=== PATIENT | male | born 1960 | race Caucasian/White ===

== ENCOUNTER 2018-12-24 12:42 | Inpatient (IN) | payer OTHER ==
[~2018-12-24] VITALS: Ht 177.8 cm; Wt 88.2 kg
[~2018-12-24 12:42] MED LIST: ASPI81TA52 PO; LISI-600 PO; PRAV40TA3 PO; RANO500T3 PO
[2018-12-24] MEDS ORDERED: aspirin 325mg tablet PO ONE (13:00)
[2018-12-24 13:11] LABS: BASOPHILS % (AUTO) 0.5 % (0-1); EOSINOPHILS # (AUTO) 0.1 X10'3 (0-0.9); EOSINOPHILS % (AUTO) 1.6 % (0-6); HEMATOCRIT 41.9 % (42.0-52.0); HEMOGLOBIN 14.5 g/dl (14.0-17.9); LYMPHOCYTES # (AUTO) 1.7 X10'3 (1.1-4.8); LYMPHOCYTES % (AUTO) 31.8 % (21-51); MEAN CORPUSCULAR HEMOGLOBIN 32.5 PG (27.0-31.0); MEAN CORPUSCULAR HGB CONC 34.5 g/dL (33.0-36.5); MEAN PLATELET VOLUME 7.8 FL (7.4-10.4); MONOCYTES # (AUTO) 0.6 X10'3 (0-0.9); MONOCYTES % (AUTO) 11.4 % (2-12); NEUTROPHILS # (AUTO) 2.9 X10'3 (1.8-7.7); NEUTROPHILS % (AUTO) 54.7 % (42-75); PLATELET COUNT 318 X10'3 (140-440); RED BLOOD COUNT 4.45 X10'6 (4.70-6.10); RED CELL DISTRIBUTION WIDTH 13.7 % (11.5-14.5); WHITE BLOOD COUNT 5.3 X10'3 (4.5-11.0)
[2018-12-24 13:23] LABS: PARTIAL THROMBOPLASTIN TIME 25 SECONDS (22-32)
[2018-12-24 13:24] LABS: ALANINE AMINOTRANSFERASE 36 U/L (12-78); ALBUMIN 3.6 G/DL (3.4-5.0); ALBUMIN/GLOBULIN RATIO 1.2 (1.1-1.5); ALKALINE PHOSPHATASE 92 IU/L (46-116); ANION GAP 8 (8-16); ASPARTATE AMINO TRANSFERASE 20 U/L (10-37); BILIRUBIN,TOTAL 0.5 MG/DL (0.1-1.0); BLOOD UREA NITROGEN 14 MG/DL (7-18); BUN/CREATININE RATIO 18.9 (5.4-32.0); CALCIUM 8.4 MG/DL (8.5-10.1); CHLORIDE 107 MMOL/L (99-107); CREATININE 0.74 MG/DL (0.60-1.10); GLUCOSE 98 MG/DL (70-104); POTASSIUM 3.8 MMOL/L (3.5-5.1); SODIUM 142 MMOL/L (135-145); TOTAL CARBON DIOXIDE 27.5 MMOL/L (24-32); TOTAL PROTEIN 6.5 G/DL (6.4-8.2); eGFR > 90 ML/MIN
[2018-12-24] MEDS ORDERED: magnesium hydroxide 30ml (MOM) UD suspension PO PRN (13:55)
[2018-12-24] MEDS ORDERED: mag hydrox/Alum hydrox/simeth 30ml oral suspension PO PRN (13:55)
[2018-12-24] MEDS ORDERED: potassium Cl 20 mEq SR tablet PO PRN (13:55)
[2018-12-24] MEDS ORDERED: bisacodyl 10mg suppository rectal RC PRN (13:55)
[2018-12-24] MEDS ORDERED: potassium Cl 40MEQ/NS 500ml 500 ML IV PRN (13:55)
[2018-12-24] MEDS ORDERED: potassium CL 10mEq/100ml bag 100 ML IV PRN (13:55)
[2018-12-24] MEDS ORDERED: magnesium 4gm in 100ml NS 100 ML IV PRN (13:55)
[2018-12-24] MEDS ORDERED: magnesium Cl slow-release 64mg tablet PO PRN (13:55)
[2018-12-24] MEDS ORDERED: morphine 2 MG/ML inj. syringe IV PRN ×2 (13:55)
[2018-12-24] MEDS ORDERED: acetaminophen 325mg tablet PO PRN (13:55)
[2018-12-24] MEDS ORDERED: magnesium 2GM in 50ml NS 50 ML IV PRN (13:55)
[2018-12-24] MEDS ORDERED: NIT5P TD (13:56)
[2018-12-24] MEDS ORDERED: ATOR80TA PO (13:56)
[2018-12-24] MEDS ORDERED: NITR0.4T51 SL (13:56)
[2018-12-24] MEDS ORDERED: heparin 25,000 UNIT/250ml bag 250 ML IV SCH ×2 (14:09→14:17)
[2018-12-24] MEDS ORDERED: heparin 10,000 units/1 ML INJ IV ONE (14:10)
[2018-12-24] MEDS ORDERED: heparin 10,000 units/1 ML INJ IV PRN (14:10)
[2018-12-24] MEDS ORDERED: carVEDilol 3.125mg tablet PO SCH (14:10)
[2018-12-24] MEDS ORDERED: nitroGLYCERIN 0.4mg SUBLingual tab SL PRN (14:10)
--- NOTE | 2018-12-24 14:42 | NUR ---
PATIENT ARRIVED TO ROOM 3012 B AT THIS TIME, SON AT BEDSIDE.
[2018-12-24 14:54] VITALS: BP 146/78
[2018-12-24] MEDS: nitroGLYCERIN 0.4mg/hour patch TD SCH (15:34)
--- NOTE | 2018-12-24 16:45 | NUR ---
PATIENT DARTED. MED REQ COMPLETED PER HOSPITALIST.
[2018-12-24 18:00] VITALS: BP 120/72
--- NOTE | 2018-12-24 18:05 | NUR ---
Problems reprioritized. Patient report given, questions answered & plan of care reviewed with DAVEY CHAO/KENNEY CHAO.
[2018-12-24] MEDS: docusate sod 100mg capsule PO SCH (20:21)
[2018-12-24] MEDS ORDERED: atorvastatin 20mg tablet PO SCH (21:00)
[2018-12-24] MEDS ORDERED: pravastatin 40mg tablet PO SCH (21:00)
[2018-12-24] MEDS ORDERED: non-formulary drug (Atorvastatin Calcium* (Lipitor*) 1 TABLET) PO SCH (21:00)
[2018-12-24 22:00] VITALS: BP 106/57
[2018-12-25 01:26] LABS: ALANINE AMINOTRANSFERASE 30 U/L (12-78); ALBUMIN/GLOBULIN RATIO 1.2 (1.1-1.5); ALKALINE PHOSPHATASE 75 IU/L (46-116); ANION GAP 2 (8-16); ASPARTATE AMINO TRANSFERASE 18 U/L (10-37); BILIRUBIN,TOTAL 0.5 MG/DL (0.1-1.0); BLOOD UREA NITROGEN 12 MG/DL (7-18); BUN/CREATININE RATIO 17.4 (5.4-32.0); CALCIUM 8.2 MG/DL (8.5-10.1); CHLORIDE 109 MMOL/L (99-107); CREATININE 0.69 MG/DL (0.60-1.10); GLUCOSE 94 MG/DL (70-104); POTASSIUM 3.4 MMOL/L (3.5-5.1); SODIUM 141 MMOL/L (135-145); TOTAL CARBON DIOXIDE 29.9 MMOL/L (24-32); TOTAL PROTEIN 5.5 G/DL (6.4-8.2); eGFR > 90 ML/MIN
[2018-12-25 01:29] LABS: CHOL/HDL RATIO 2.6 (0.00-4.99); CHOLESTEROL 106 MG/DL (0-200); HDL CHOLESTEROL 41 MG/DL (35-60); LDL CHOLESTEROL 58 MG/DL (50-100); MAGNESIUM 1.8 MG/DL (1.5-2.4); TRIGLYCERIDES 39 MG/DL (20-135)
[2018-12-25] MEDS: potassium Cl 20 mEq SR tablet PO PRN ×3 (01:43→09:53)
[2018-12-25 02:00] VITALS: BP 103/60
[2018-12-25 04:16] LABS: BASOPHILS % (AUTO) 0.6 % (0-1); EOSINOPHILS # (AUTO) 0.1 X10'3 (0-0.9); EOSINOPHILS % (AUTO) 0.9 % (0-6); HEMATOCRIT 38.6 % (42.0-52.0); HEMOGLOBIN 13.3 g/dl (14.0-17.9); LYMPHOCYTES # (AUTO) 2.2 X10'3 (1.1-4.8); LYMPHOCYTES % (AUTO) 32.2 % (21-51); MEAN CORPUSCULAR HGB CONC 34.4 g/dL (33.0-36.5); MEAN PLATELET VOLUME 8.2 FL (7.4-10.4); MONOCYTES # (AUTO) 0.6 X10'3 (0-0.9); MONOCYTES % (AUTO) 8.7 % (2-12); NEUTROPHILS % (AUTO) 57.6 % (42-75); PLATELET COUNT 274 X10'3 (140-440); RED BLOOD COUNT 4.16 X10'6 (4.70-6.10); RED CELL DISTRIBUTION WIDTH 13.9 % (11.5-14.5); WHITE BLOOD COUNT 6.9 X10'3 (4.5-11.0)
--- NOTE | 2018-12-25 06:06 | NUR ---
Patient in room PCU 3012. I have received report from JEREMIE Alcantar and had the opportunity to ask questions and assume patient care.
--- NOTE | 2018-12-25 06:06 | NUR ---
[place]rientee documentation: I have reviewed and agree with all interventions, assessments performed and documented by Irena CHAO. [place] Medication Administration: For this medication-pass time frame, all medication were reviewed, dispensed, administered and documented per hospital policy by Irena CHAO.
--- NOTE | 2018-12-25 06:11 | NUR ---
Problems reprioritized. Patient report given, questions answered & plan of care reviewed with Estefani Rodriguez.
--- NOTE | 2018-12-25 06:21 | NUR ---
Patient in room PCU 3012. I have received report from Irena and had the opportunity to ask questions and assume patient care.
[2018-12-25 06:30] VITALS: BP 130/74
[2018-12-25] MEDS: docusate sod 100mg capsule PO SCH (07:15)
[2018-12-25 07:16] VITALS: BP_SYST 130
[2018-12-25] MEDS: nitroGLYCERIN 0.4mg/hour patch TD SCH (07:16)
[2018-12-25] MEDS ORDERED: K and/or MAG REPLACEMENT MC SCH (08:00)
[2018-12-25] MEDS ORDERED: aspirin 81mg tablet.DR PO SCH ×2 (08:00)
[2018-12-25] MEDS ORDERED: lisinopril 20mg tablet PO SCH (08:00)
[2018-12-25] MEDS ORDERED: NIT10P TD (09:27)
[2018-12-25] MEDS ORDERED: RANO500T3 PO (09:27)
[2018-12-25] MEDS ORDERED: POTA20TA19 PO (09:34)
--- NOTE | 2018-12-25 10:14 | NUR ---
Rx's called to [facility] on [address] Left message and informed them this was for workers comp as requested by pt. All follow up appointments and dc instructions gone over with pt and . They both verbalize understanding. IV dc'd. Discharged home via wc.
== END 2018-12-25 10:05 | disposition home or self-care (01) | DRG 303 ==
LOC: ER 12:43 → PCU 3S 14:39
PROVIDERS: ADMIT Internal Medicine; ATTEND Internal Medicine
DX: I25.118 Atherosclerotic heart disease of native coronary artery with other forms of angina pectoris (principal); I10 Essential (primary) hypertension; E87.6 Hypokalemia; E78.5 Hyperlipidemia, unspecified; Z95.1 Presence of aortocoronary bypass graft; Z95.5 Presence of coronary angioplasty implant and graft; Z91.013 Allergy to seafood; Z91.048 Other nonmedicinal substance allergy status
CPT/HCPCS: 36415; 71045; 80053; 80061; 83735; 84484; 85025; 85610; 85730; 87070; 93005; 93306; 99285; G0378; J1644

== ENCOUNTER 2021-06-07 10:41 | Inpatient (IN) | payer OTHER ==
[~2021-06-07] VITALS: Ht 177.8 cm; Wt 87.7 kg
[~2021-06-07 10:41] MED LIST changes: +ATOR80TA PO; -LISI-600 PO; +LISI20TA28 PO; +NITR0.4T51 SL; +NITR1PAT68 TD; -PRAV40TA3 PO
[2021-06-07 12:07] LABS: BASOPHILS % (AUTO) 0.4 % (0-1); EOSINOPHILS # (AUTO) 0.1 X10'3 (0-0.9); EOSINOPHILS % (AUTO) 0.8 % (0-6); HEMATOCRIT 44.3 % (42.0-52.0); HEMOGLOBIN 14.9 g/dl (14.0-17.9); LYMPHOCYTES # (AUTO) 1.2 X10'3 (1.1-4.8); LYMPHOCYTES % (AUTO) 15.6 % (21-51); MEAN CORPUSCULAR HEMOGLOBIN 30.5 PG (27.0-31.0); MEAN CORPUSCULAR HGB CONC 33.6 g/dL (33.0-36.5); MEAN CORPUSCULAR VOLUME 90.7 FL (78-98); MEAN PLATELET VOLUME 8.3 FL (7.4-10.4); MONOCYTES # (AUTO) 0.5 X10'3 (0-0.9); MONOCYTES % (AUTO) 6.9 % (2-12); NEUTROPHILS # (AUTO) 5.8 X10'3 (1.8-7.7); NEUTROPHILS % (AUTO) 76.3 % (42-75); PLATELET COUNT 371 X10'3 (140-440); RED BLOOD COUNT 4.89 X10'6 (4.70-6.10); RED CELL DISTRIBUTION WIDTH 14.1 % (11.5-14.5); WHITE BLOOD COUNT 7.6 X10'3 (4.5-11.0)
[2021-06-07 12:26] LABS: ALANINE AMINOTRANSFERASE 34 U/L (12-78); ALBUMIN 3.5 G/DL (3.4-5.0); ALBUMIN/GLOBULIN RATIO 1.1 (1.1-1.5); ALKALINE PHOSPHATASE 108 IU/L (46-116); ANION GAP 9 (8-16); ASPARTATE AMINO TRANSFERASE 24 U/L (10-37); BILIRUBIN,TOTAL 0.6 MG/DL (0.1-1.0); BLOOD UREA NITROGEN 11 MG/DL (7-18); BUN/CREATININE RATIO 13.9 (5.4-32.0); CALCIUM 8.6 MG/DL (8.5-10.1); CHLORIDE 107 MMOL/L (99-107); CREATININE 0.79 MG/DL (0.60-1.10); GLUCOSE 100 MG/DL (70-104); SODIUM 144 MMOL/L (135-145); TOTAL CARBON DIOXIDE 28.5 MMOL/L (24-32); TOTAL PROTEIN 6.6 G/DL (6.4-8.2); eGFR > 90 ML/MIN
[2021-06-07] MEDS ORDERED: aspirin 325mg tablet PO ONE (13:00)
[2021-06-07] MEDS ORDERED: nitroGLYCERIN 0.4mg/hour patch TD ONE (13:55)
[2021-06-07] MEDS ORDERED: heparin 10,000 units/1 ML INJ IV ONE (13:55)
[2021-06-07] MEDS: heparin 25,000 UNIT/250ml bag 250 ML IV SCH (14:21)
[2021-06-07] MEDS ORDERED: magnesium hydroxide 30ml (MOM) UD suspension PO PRN (14:25)
[2021-06-07] MEDS ORDERED: mag hydrox/Alum hydrox/simeth 30ml oral suspension PO PRN (14:25)
[2021-06-07] MEDS ORDERED: ondansetron/PF 4mg/2ml inj IV PRN (14:25)
[2021-06-07] MEDS ORDERED: morphine 2 MG/ML inj. syringe IV PRN ×2 (14:25)
[2021-06-07] MEDS ORDERED: acetaminophen 325mg tablet PO PRN (14:25)
[2021-06-07] MEDS ORDERED: NITR1PAT63 TOP (14:37)
[2021-06-07] MEDS: normal saline 1000ml 1,000 ML IV SCH ×2 (14:40→20:35)
[2021-06-07 14:52] LABS: PARTIAL THROMBOPLASTIN TIME 23 SECONDS (22-32)
[2021-06-07] MEDS ORDERED: nitroGLYCERIN 0.4mg SUBLingual tab SL PRN (15:45)
--- NOTE | 2021-06-07 18:44 | NUR ---
Patient in room ED 8. I have received report from JEREMIE Shipley in the ER and had the opportunity to ask questions and assume patient care.
--- NOTE | 2021-06-07 19:05 | NUR ---
Patient resting comfortably on bed, watching TV. Has no complaints at this time, we helped him boost up in bed. Addendum: 06/07/21 at 1906 by Margie Valencia RN wrong patient
[2021-06-07 19:38] VITALS: BP 137/73
[2021-06-07] MEDS ORDERED: pneumococcal 23-VAL P-sac vacc 25 mcg/0.5ml vial IMVAC ONE (19:50)
[2021-06-07 20:16] LABS: PARTIAL THROMBOPLASTIN TIME 47 SECONDS (22-32)
[2021-06-07] MEDS: docusate sod 100mg capsule PO SCH (20:31)
[2021-06-07] MEDS: atorvastatin 20mg tablet PO SCH (20:33)
[2021-06-08 02:37] LABS: ALBUMIN 2.9 G/DL (3.4-5.0); ANION GAP 8 (8-16); BLOOD UREA NITROGEN 12 MG/DL (7-18); BUN/CREATININE RATIO 16.2 (5.4-32.0); CHLORIDE 109 MMOL/L (99-107); CREATININE 0.74 MG/DL (0.60-1.10); GLUCOSE 81 MG/DL (70-104); POTASSIUM 3.4 MMOL/L (3.5-5.1); SODIUM 145 MMOL/L (135-145); TOTAL CARBON DIOXIDE 28.1 MMOL/L (24-32); eGFR > 90 ML/MIN
[2021-06-08] MEDS: heparin 10,000 units/1 ML INJ IV PRN ×2 (02:56→17:54)
[2021-06-08] MEDS: heparin 25,000 UNIT/250ml bag 250 ML IV SCH ×2 (02:57→16:36)
[2021-06-08 03:08] LABS: BASOPHILS # (AUTO) 0.1 X10'3 (0-0.2); BASOPHILS % (AUTO) 0.8 % (0-1); EOSINOPHILS # (AUTO) 0.1 X10'3 (0-0.9); EOSINOPHILS % (AUTO) 1.5 % (0-6); HEMATOCRIT 37.7 % (42.0-52.0); LYMPHOCYTES # (AUTO) 2.3 X10'3 (1.1-4.8); LYMPHOCYTES % (AUTO) 33.8 % (21-51); MEAN CORPUSCULAR HEMOGLOBIN 30.9 PG (27.0-31.0); MEAN CORPUSCULAR HGB CONC 34.3 g/dL (33.0-36.5); MEAN PLATELET VOLUME 8.7 FL (7.4-10.4); MONOCYTES # (AUTO) 0.6 X10'3 (0-0.9); MONOCYTES % (AUTO) 8.7 % (2-12); NEUTROPHILS # (AUTO) 3.7 X10'3 (1.8-7.7); NEUTROPHILS % (AUTO) 55.2 % (42-75); PLATELET COUNT 300 X10'3 (140-440); RED BLOOD COUNT 4.19 X10'6 (4.70-6.10); RED CELL DISTRIBUTION WIDTH 14.3 % (11.5-14.5); WHITE BLOOD COUNT 6.7 X10'3 (4.5-11.0)
--- NOTE | 2021-06-08 06:14 | NUR ---
Problems reprioritized. Patient report given, questions answered & plan of care reviewed with JEREMIE Moreland.
[2021-06-08 07:50] VITALS: BP 117/61
[2021-06-08] MEDS: lisinopril 20mg tablet PO SCH (08:00)
[2021-06-08] MEDS ORDERED: potassium Cl 20 mEq SR tablet PO PRN (08:15)
[2021-06-08] MEDS ORDERED: magnesium 4gm in 100ml NS 100 ML IV PRN (08:15)
[2021-06-08] MEDS ORDERED: potassium Cl 40MEQ/1/2NS 520ml 520 ML IV PRN (08:15)
[2021-06-08] MEDS ORDERED: magnesium Cl slow-release 64mg tablet PO PRN (08:15)
[2021-06-08] MEDS: docusate sod 100mg capsule PO SCH ×2 (08:55→20:56)
[2021-06-08] MEDS: potassium Cl 20 mEq SR tablet PO PRN ×3 (08:56→20:55)
[2021-06-08] MEDS: nitroGLYCERIN 0.2mg/hour patch TD SCH (08:56)
[2021-06-08] MEDS: aspirin 81mg, enteric-coated 1 TAB TABLET.DR PO SCH (08:56)
[2021-06-08] MEDS ORDERED: COVID-19 VACC, MRNA(PFIZER)/PF--BNT162b2 syringe IMVAC ONE (10:00)
[2021-06-08] MEDS: normal saline 1000ml 1,000 ML IV SCH ×2 (10:25→20:25)
[2021-06-08 11:00] VITALS: BP 124/69
[2021-06-08 18:00] VITALS: BP 137/81
--- NOTE | 2021-06-08 18:39 | NUR ---
Problems reprioritized. Patient report given, questions answered & plan of care reviewed with Margie CHAO.
--- NOTE | 2021-06-08 18:40 | NUR ---
Patient in room PCU 3017. JEREMIE Bejarano and I have received report from JEREMIE Moreland and had the opportunity to ask questions and assume patient care. The patient is sitting up resting comfortably on hospital bed, with at the bedside. He is to have a heart cath tomorrow, we will continue to monitor.
--- NOTE | 2021-06-08 18:55 | NUR ---
Patient in room PCU 3017. I have received report from Merly CHAO and had the opportunity to ask questions and assume patient care.
--- NOTE | 2021-06-08 19:40 | NUR ---
Patient reporting medical chest tightness 10/08, I have ordered a EKG and will give Nitro SL per protocol.
[2021-06-08] MEDS: K and/or MAG REPLACEMENT MC SCH (20:00)
--- NOTE | 2021-06-08 20:07 | NUR ---
Per Dr. Phelps order a Troponin and put copy of EKG under the Hospitalists office door. Patient reports no chest pain at this time.
[2021-06-08] MEDS ORDERED: Melatonin 3mg tablet PO ONE (21:00)
--- NOTE | 2021-06-08 21:12 | NUR ---
Per Dr. Lenin pressley to give Benadryl 25mg and Melatonin 3mg.
[2021-06-08] MEDS ORDERED: diphenhydrAMINE 25mg capsule PO ONE (21:15)
[2021-06-08] MEDS: atorvastatin 20mg tablet PO SCH (21:23)
[2021-06-08 22:00] VITALS: BP 136/79
[2021-06-09] VITALS (11 sets, daily range): BP systolic 123–151; BP diastolic 51–84
[2021-06-09] MEDS: normal saline 1000ml 1,000 ML IV SCH ×2 (06:25→16:25)
--- NOTE | 2021-06-09 06:29 | NUR ---
Problems reprioritized. Patient report given, questions answered & plan of care reviewed with VelvetRN.
[2021-06-09 06:56] LABS: BASOPHILS % (AUTO) 0.7 % (0-1); EOSINOPHILS # (AUTO) 0.1 X10'3 (0-0.9); EOSINOPHILS % (AUTO) 1.4 % (0-6); HEMATOCRIT 39.4 % (42.0-52.0); HEMOGLOBIN 13.4 g/dl (14.0-17.9); LYMPHOCYTES # (AUTO) 1.9 X10'3 (1.1-4.8); LYMPHOCYTES % (AUTO) 31.4 % (21-51); MEAN CORPUSCULAR HEMOGLOBIN 30.7 PG (27.0-31.0); MEAN CORPUSCULAR HGB CONC 34.1 g/dL (33.0-36.5); MEAN PLATELET VOLUME 8.6 FL (7.4-10.4); MONOCYTES # (AUTO) 0.6 X10'3 (0-0.9); NEUTROPHILS # (AUTO) 3.6 X10'3 (1.8-7.7); NEUTROPHILS % (AUTO) 57.5 % (42-75); PLATELET COUNT 297 X10'3 (140-440); RED BLOOD COUNT 4.38 X10'6 (4.70-6.10); RED CELL DISTRIBUTION WIDTH 14.1 % (11.5-14.5); WHITE BLOOD COUNT 6.2 X10'3 (4.5-11.0)
[2021-06-09 07:30] LABS: ANION GAP 12 (8-16); BLOOD UREA NITROGEN 8 MG/DL (7-18); BUN/CREATININE RATIO 11.3 (5.4-32.0); CALCIUM 8.4 MG/DL (8.5-10.1); CHLORIDE 112 MMOL/L (99-107); CREATININE 0.71 MG/DL (0.60-1.10); GLUCOSE 81 MG/DL (70-104); POTASSIUM 3.8 MMOL/L (3.5-5.1); SODIUM 149 MMOL/L (135-145); TOTAL CARBON DIOXIDE 25.1 MMOL/L (24-32); eGFR > 90 ML/MIN
[2021-06-09] MEDS: K and/or MAG REPLACEMENT MC SCH ×2 (07:51→20:00)
[2021-06-09] MEDS: docusate sod 100mg capsule PO SCH ×2 (09:20→20:32)
[2021-06-09] MEDS: aspirin 81mg, enteric-coated 1 TAB TABLET.DR PO SCH (09:20)
[2021-06-09] MEDS: lisinopril 20mg tablet PO SCH (09:21)
[2021-06-09] MEDS: nitroGLYCERIN 0.2mg/hour patch TD SCH (09:21)
[2021-06-09] MEDS ORDERED: LIDOcaine 1% (10mg/ml)w/preservative injection 20ml MDV ONE (14:51)
[2021-06-09] MEDS ORDERED: iohexol 350MG/ML 100ml bottle IV ONE (14:51)
[2021-06-09] MEDS ORDERED: midazolam 1 mg/ML 2ml injection ONE (14:53)
[2021-06-09] MEDS ORDERED: fentaNYL/PF 50MCG/1 ML 2ML syringe ONE (14:53)
[2021-06-09] MEDS ORDERED: heparin 1,000 UNITS/NS 500ml 500 ML ONE (14:55)
[2021-06-09] MEDS ORDERED: diphenhydrAMINE 50 mg/ml inj ONE (15:05)
[2021-06-09] MEDS ORDERED: HYDROcodone/acetaminophen 10/325mg tab PO PRN (16:45)
[2021-06-09] MEDS ORDERED: OXAZEpam 15mg capsule PO PRN (16:45)
[2021-06-09] MEDS ORDERED: proCHLORperazine 10 MG/2 ml inj IV PRN (16:45)
[2021-06-09] MEDS ORDERED: ondansetron/PF 4mg/2ml inj IV PRN (16:45)
[2021-06-09] MEDS ORDERED: HYDROcodone/acetaminophen 5mg/325mg tablet PO PRN (16:45)
--- NOTE | 2021-06-09 18:15 | NUR ---
Patient in room PCU 3017. JEREMIE Bejarano and I have received report from JEREMIE Verdin and had the opportunity to ask questions and assume patient care. Patient has heart cath this afternoon and is laying flat on hospital in now distress, is at the bedside. We will continue to monitor.
[2021-06-09] MEDS: atorvastatin 20mg tablet PO SCH (20:33)
[2021-06-10 02:00] VITALS: BP 136/63
[2021-06-10] MEDS: normal saline 1000ml 1,000 ML IV SCH (02:25)
--- NOTE | 2021-06-10 06:30 | NUR ---
Problems reprioritized. Patient report given, questions answered & plan of care reviewed with Pat RN.
[2021-06-10 06:49] LABS: BASOPHILS # (AUTO) 0.1 X10'3 (0-0.2); BASOPHILS % (AUTO) 0.9 % (0-1); EOSINOPHILS # (AUTO) 0.1 X10'3 (0-0.9); EOSINOPHILS % (AUTO) 1.7 % (0-6); HEMATOCRIT 40.3 % (42.0-52.0); LYMPHOCYTES # (AUTO) 1.6 X10'3 (1.1-4.8); LYMPHOCYTES % (AUTO) 28.5 % (21-51); MEAN CORPUSCULAR HGB CONC 34.6 g/dL (33.0-36.5); MEAN CORPUSCULAR VOLUME 89.4 FL (78-98); MEAN PLATELET VOLUME 8.1 FL (7.4-10.4); MONOCYTES # (AUTO) 0.7 X10'3 (0-0.9); MONOCYTES % (AUTO) 13.2 % (2-12); NEUTROPHILS # (AUTO) 3.1 X10'3 (1.8-7.7); NEUTROPHILS % (AUTO) 55.7 % (42-75); PLATELET COUNT 295 X10'3 (140-440); RED BLOOD COUNT 4.51 X10'6 (4.70-6.10); RED CELL DISTRIBUTION WIDTH 14.1 % (11.5-14.5); WHITE BLOOD COUNT 5.6 X10'3 (4.5-11.0)
[2021-06-10 06:53] VITALS: BP 138/66
[2021-06-10 07:36] LABS: ANION GAP 10 (8-16); BLOOD UREA NITROGEN 9 MG/DL (7-18); BUN/CREATININE RATIO 11.3 (5.4-32.0); CALCIUM 8.5 MG/DL (8.5-10.1); CHLORIDE 109 MMOL/L (99-107); GLUCOSE 91 MG/DL (70-104); POTASSIUM 3.4 MMOL/L (3.5-5.1); SODIUM 146 MMOL/L (135-145); TOTAL CARBON DIOXIDE 27.1 MMOL/L (24-32); eGFR > 90 ML/MIN
[2021-06-10] MEDS: docusate sod 100mg capsule PO SCH (07:49)
[2021-06-10] MEDS: aspirin 81mg, enteric-coated 1 TAB TABLET.DR PO SCH (07:50)
[2021-06-10] MEDS: lisinopril 20mg tablet PO SCH (07:50)
[2021-06-10] MEDS: nitroGLYCERIN 0.2mg/hour patch TD SCH (07:51)
[2021-06-10] MEDS: K and/or MAG REPLACEMENT MC SCH (07:58)
[2021-06-10] MEDS: potassium Cl 20 mEq SR tablet PO PRN (08:00)
[2021-06-10 11:00] VITALS: BP 120/73
== END 2021-06-10 11:20 | disposition home or self-care (01) | DRG 282 ==
LOC: ER 10:41 → ED HOLD 14:23 → EDBEDREQ 18:28 → PCU 3S 19:15
PROVIDERS: ADMIT Family Medicine; ATTEND Family Medicine
PROC: 4A023N7 Measurement of Cardiac Sampling and Pressure, Left Heart, Percutaneous Approach (ICD-10-PCS; principal; 2021-06-09)
PROC: B2151ZZ Fluoroscopy of Left Heart using Low Osmolar Contrast (ICD-10-PCS; 2021-06-09)
PROC: B2181ZZ Fluoroscopy of Left Internal Mammary Bypass Graft using Low Osmolar Contrast (ICD-10-PCS; 2021-06-09)
PROC: B2131ZZ Fluoroscopy of Multiple Coronary Artery Bypass Grafts using Low Osmolar Contrast (ICD-10-PCS; 2021-06-09)
PROC: B41F1ZZ Fluoroscopy of Right Lower Extremity Arteries using Low Osmolar Contrast (ICD-10-PCS; 2021-06-09)
DX: I21.4 Non-ST elevation (NSTEMI) myocardial infarction (principal); E78.5 Hyperlipidemia, unspecified; I10 Essential (primary) hypertension; I25.118 Atherosclerotic heart disease of native coronary artery with other forms of angina pectoris; E87.6 Hypokalemia; R00.1 Bradycardia, unspecified; Z87.891 Personal history of nicotine dependence; Z95.5 Presence of coronary angioplasty implant and graft; Z95.1 Presence of aortocoronary bypass graft; Z91.013 Allergy to seafood; Z91.048 Other nonmedicinal substance allergy status; Z79.82 Long term (current) use of aspirin; Z79.899 Other long term (current) drug therapy; Z82.49 Family history of ischemic heart disease and other diseases of the circulatory system
CPT/HCPCS: 0004A; 36415; 71045; 80048; 80053; 83880; 84484; 85025; 85610; 85730; 87081; 90732; 91300; 93005; 93306; 93459; 96365; 99152; 99153; 99285; A4620; A6258; C1760; C1769; G0378; J1200; J1644; J2001; J2250; J3010; J7030; Q0163; Q9967

== ENCOUNTER 2025-03-24 17:41 | Inpatient (IN) | payer OTHER, MEDICARE ==
[~2025-03-24] VITALS: Ht 177.8 cm; Wt 85.5 kg
[~2025-03-24 17:41] MED LIST changes: +ATOR-429 PO; -ATOR80TA PO; +NITR1PAT63 TOP; -NITR1PAT68 TD; -RANO500T3 PO
--- NOTE | 2025-03-24 17:53 | ELECTROCARDIOGRAPH REPORT ---
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 Porter Echavarria Measurements Intervals [place] Rate: 73 P: 71 NM: 137 QRS: 61 QRSD: 82 T: 58 QT: 391 QTc: 431 Interpretive Statements Sinus rhythm Left atrial enlargement Electronically Signed On 03-24-2025 18:44:[address] Porter Echavarria Please click the below link to view image of tracing.
--- NOTE | 2025-03-24 18:16 | Physician Documentation ---
History of Present Illness General Chief Complaint: Chest Pain Stated Complaint: CHEST PAIN Time Seen by MD: 18:15 History of Present Illness Initial Comments The patient is a 64-year-old male with an extensive cardiac history. The patient states this morning when he awoke he experience substernal chest tightness. Patient states he has not been to the emergency room for chest tightness for several years proximally 3-4 years. The patient states he placed a 0.2 mg nitro patch on his body this morning. He states he has had intermittent worsening of his substernal chest pressure. He does not attribute anything to the fluctuating chest pressure he states he has not done anything strenuous today. Patient states about a week ago he was able to walk 6 miles without any discomfort. The patient has complains of some slight shortness of breath. Patient's symptoms are moderate and persistent the patient denies any fevers chills nausea or vomiting or diarrhea. Medication Reconciliation Allergies: Coded Allergies: Shellfish (Verified Allergy, Unknown, SWELLING, SOB, 03/24/25) adhesive tape (Verified Allergy, Unknown, 03/24/25) Scheduled Alfuzosin HCl (Uroxatral), 1 TAB PO DAILY Aspirin (Aspirin EC), 1 TABLET PO DAILY, (Reported) Atorvastatin Calcium* (Lipitor*), 1 TABLET PO HS, (Reported) Lisinopril (Lisinopril), 1 TAB PO DAILY Scheduled PRN Nitroglycerin SL* (Nitrostat SL*), 1 TAB SL Q5MIN PRN for Chest pain Q5min PRNx3-call MD, (Reported) Discontinued Medications Lisinopril (Lisinopril), 1 TAB PO DAILY, (Reported) Nitroglycerin Patch 0.2MG/HR* (Nitro-Dur Patch 0.2MG/HR*), 1 PATCH TOP DAILY, (Reported) Past Medical History Past Medical History: Angina, Coronary Artery Disease, Hypertension Past Surgical History: angioplasty, coronary bypass surgery, other Smoking: Non-Smoker Alcohol Use: Occasionally Drug Use: none Lives with: Spouse Lives In: Home Occupation: disabled Review of Systems All Other Systems at this time: Reviewed and Negative Physical Exam Physical Exam Vital Signs: Temperature: 98.1, Source: Temporal, Heart Rate: 55, Respiratory Rate: 14, BP: 146/78, Pulse Oximetry: 98, Weight: 85.500 Oxygen Flow Rate: 0 Physical Exam VITALS: Reviewed and as above. GENERAL: Alert, no apparent distress. HEENT: Normocephalic, atraumatic, PERRL, EOMI, dry mucosa, no erythema RESPIRATORY: Lungs clear, normal breath sounds, no respiratory distress. CHEST: No accessory muscle use, no retractions CV: Regular rate, rhythm, no edema, no murmur, No: JVD GI: Soft, non-tender, bowels sounds present, no rebound, guarding, or rigidity BACK: No CVA tenderness, or swelling MUSCULOSKELETAL: No deformities, no edema SKIN: Warm and dry, no rash NEURO: Oriented x4, No motor or sensory deficit PSYCH: Normal mood and affect, no agitation Progress Results/Orders Results/Orders Orders - OHLFS,JOSE M Nunn MD Page Hospitalist (03/24/25 18:56) Completed Orders - OHLFS,JOSE M Nunn MD Aspirin 81mg Chew Tablet (Aspirin 81mg C (03/25/25 08:30) Nitroglycerin 0.4mg/Hr Patch (Nitro-Dur (03/24/25 18:35) Aspirin 81mg Chew Tablet (Aspirin 81mg C (03/24/25 08:30) Pt Inr (03/24/25 18:47) PTT (03/24/25 18:47) Heparin 10,000 Unit/Ml 1ml (Heparin 10,0 (03/24/25 18:50) Heparin 25,000 Unit/250ml Bag (Heparin 2 (03/24/25 18:50) Heparin 10,000 Unit/Ml 1ml (Heparin 10,0 (03/24/25 18:50) Cbc/Diff (03/25/25 03:00) Cbc/Diff (03/26/25 03:00) Cardiac Ptt (03/24/25 18:49) Heparin 10,000 Unit/Ml 1ml (Heparin 10,0 (03/24/25 19:00) Message To Nursing (03/24/25 19:10) Vital Signs 03/24/25 03/24/25 03/24/25 03/24/25 17:44 18:12 18:31 18:50 Temp 98.1 Pulse 66 55 59 Resp 16 14 14 16 B/P (MAP) 165/92 146/78 (100) 146/72 (96) Pulse Ox 99 98 98 O2 Flow Rate 0 0 03/24/25 19:00 Pulse 56 Resp 14 B/P (MAP) 138/74 (95) Pulse Ox 98 Laboratory Tests Test 03/24/25 18:04 White Blood Count 5.4 Red Blood Count 4.41 L Hemoglobin 13.1 L Hematocrit 39.2 L Mean Corpuscular Volume 88.9 Mean Corpuscular Hemoglobin 29.7 Mean Corpuscular Hemoglobin Concent 33.4 Red Cell Distribution Width 15.2 H Platelet Count 352 Mean Platelet Volume 8.0 Neutrophils (%) (Auto) 55.6 Lymphocytes (%) (Auto) 31.0 Monocytes (%) (Auto) 11.3 Eosinophils (%) (Auto) 1.5 Basophils (%) (Auto) 0.6 Neutrophils # (Auto) 3.0 Lymphocytes # (Auto) 1.7 Monocytes # (Auto) 0.6 Eosinophils # (Auto) 0.1 Basophils # (Auto) 0.0 CBC Comment Prothrombin Time 10.5 INR International Normalized Ratio 1.0 Activated Partial Thromboplast Time 24 APTT (Heparin Protocol) 24 L Coagulation Comments Sodium Level 143 Potassium Level 3.8 Chloride Level 108 H Carbon Dioxide Level 27.6 Anion Gap 7 L Blood Urea Nitrogen 11 Creatinine 0.60 Estimated GFR/1.73 m2 > 90 BUN/Creatinine Ratio 18.3 Glucose Level 100 Hemoglobin A1c 5.5 Calcium Level 8.7 Troponin I High Sensitivity 151 *H Pro-B-Type Natriuretic Peptide 293 H Albumin 3.6 Triglycerides Level 22 Cholesterol Level 124 LDL Cholesterol 67 HDL Cholesterol 48 Cholesterol/HDL Ratio 2.6 Chemistry Comments EKG/XRAY/CT/US/VASC/MRI Chest X-Ray : Additional Comments Patient: KARLA ROLDAN Medical Record: [id number] [facility] : 1960, Age: 64 Sex: Male Location: ER Patient Status: REG ER Service Date/Time: 03/24/251750 Ordering Physician: RUSSELL BROWN MD Exam: CHEST,SINGLE VIEW CHEST RADIOGRAPH Indication: CP Technique: Single frontal view of the chest was obtained Comparison: CHEST,SINGLE VIEW on DOS: 06/07/21 FINDINGS: Lines and Tubes: None Lungs: No focal consolidation. Mild elevation of the right hemidiaphragm. Pleura: No effusion. No pneumothorax. Cardiomediastinal contours: Unremarkable. Midline sternotomy wires surgical c lips are noted consistent with prior history of CABG. Bones: No acute osseous abnormality. IMPRESSION: No acute cardiopulmonary disease. Electronically Signed by:REGINE BAINS DO Date & Time: 03/24/251815 Dictated by: REGINE BAINS DO Dictation date and time: 03/24/25 175 Primary Care Provider: NO PRIMARY CARE PROVIDER cc: RUSSELL BROWN MD ~ Medical Decision Making Findings The patient's EKG was interpreted as a sinus rhythm with a rate of 73 with a normal axis there was no ST-elevation or ST-depression impression was a normal EKG. The time of the EKG was 1744. The patient has a significant cardiac history with multiple stents he states he has a eight stents he has had two bypasses has not been studied in four years he has had a clean angiogram four years ago. The patient was given aspirin here in the emergency department to get him a total of 324 mg of aspirin for today he also had his nitro patch taken off and a 0.4 mg nitro patch applied. 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 These were not supported by the clinical evidence. The patient's troponin was elevated he was started on a heparin drip he will be admitted to the medical service. Departure Admitted to Inpatient Unit: yes, to hospitalist Impression: Primary Impression: Acute coronary syndrome Referrals: NO PRIMARY CARE PROVIDER (PCP) Prescriptions Alfuzosin HCl (Uroxatral) 10 Mg Tab.sr.24h 1 TAB PO DAILY for 30 Days, #30 TAB 0 Refills Prov: KACIE CHAUDHARI MD 03/26/25 Lisinopril (Lisinopril) 5 Mg Tablet 1 TAB PO DAILY for 30 Days, #30 TAB 0 Refills Prov: KACIE CHAUDHARI MD 03/26/25 Signature Scribe Signature: No scribe Attestation: The note accurately reflects work and decisions made by me.Jose M Echavarria MD 03/26/25 14:50 JOSE M ECHAVARRIA MD Mar 24, 2025 18:15
[2025-03-24 18:26] LABS: MEAN PLATELET VOLUME 8.0 FL (7.4-10.4); RED CELL DISTRIBUTION WIDTH 15.2 % (11.5-14.5)
[2025-03-24 18:45] LABS: CREATININE 0.60 MG/DL (0.60-1.10); PRO BRAIN NATRIURETIC PEPTIDE 293 PG/ML (0-125); TOTAL CARBON DIOXIDE 27.6 MMOL/L (24-32); eCRCL 128 ML/MIN; eGFR > 90 ML/MIN
[2025-03-24] MEDS: heparin 10,000 units/1 ML INJ IV ONE ×2 (19:25→19:33)
[2025-03-24 19:27] LABS: APTT 24 SECONDS (22-32); INR 1.0 INR
[2025-03-24] MEDS: heparin 25,000 UNIT/250ml bag 250 ML IV PRN (19:29)
[2025-03-24] MEDS: MESSAGE TO NURSING IV ONE (19:33)
--- NOTE | 2025-03-24 20:09 | HISTORY AND PHYSICAL-Residence ---
History & Physical Providers to CC Resident Creating Document: MARCOBENNIETIFFANIEAmritMIROSLAVA, RES ~ History of Present Illness Primary Medical Doctor: Cecilia Sheets Reason for Admit\Complaint: Chest tightness History of Present Illness This is a 64-year-old male with past medical history of aortic dissection, Myocardial infarction, hypertension, hyperlipidemia who came to the ER in view of chest tightness since today morning. He explained that he woke up from sleep and noticed chest tightness associated with some shortness of breath. Chest tightness was 5/10, intermittent, with each episode lasting a few hours, nonradiating. Not associated with diaphoresis, cough, expectoration, palpitation, dizziness, nausea, leg swelling. He put on a nitro patch which did not relieve was chest pain, which prompted him to come to the ER. Currently rates the pain as 2/10. He has had similar episodes in the past, but those episodes were relieved with nitro patch. He can walk 2-2.5 miles without stopping to catch his breath. He is Dr. Christine's patient. His last angiogram four years ago was normal. In 2002 when he tried to left a heavy steel plate which weighed over a 1000 pound, he had aortic dissection for which he underwent 8 stenting. He has had on and off chest discomfort ever since associated vasospasm. He underwent 2 CABG surgeries one in 2006 and the other in 2010. Allergies: Coded Allergies: Shellfish (Verified Allergy, Unknown, SWELLING, SOB, 03/24/25) adhesive tape (Verified Allergy, Unknown, 03/24/25) Home Medications Home Medications Active Reported Nitro-Dur Patch 0.2MG/HR* (Nitroglycerin) 0.2 Mg Patch 1 Patch TOP DAILY Nitrostat SL* (Nitroglycerin) 0.4 Mg Tablet 1 Tab SL Q5MIN PRN Lipitor* (Atorvastatin Calcium) 80 Mg Tablet 1 Tablet PO HS Lisinopril 20 Mg Tablet 1 Tab PO DAILY Aspirin EC (Aspirin) 81 Mg Tablet. 1 Tablet PO DAILY Past Medical History Past Medical History Aortic dissection Myocardial infarction Hypertension Hyperlipidemia Past Surgical History Surgical History Comment 8 stents in 2002 for aortic dissection Tried brachytherapy in 2005 due to extensive scarring from 8 stents 2 CABG one in 2006 and the other in 2010 His last angiogram four years ago was normal Past Social History Smoking: Non-Smoker, Quit greater than 1 year (Smoked one pack a day from the age of [age]) Alcohol Use: Rarely (Drinks one glass of wine a month) Drug Use: None (Tried most of the drugs from the age of 17- 23) Lives with: Spouse Lives In: Home Occupation: disabled Domestic Violence: Neg ROS All Other Systems: Reviewed and Negative Constitutional: Reports: weakness Eyes: Reports: no symptoms reported ENT: Reports: no symptoms reported Respiratory: Reports: shortness of breath Cardiovascular: Reports: chest pain Gastrointestinal: Reports: no symptoms reported Genitourinary: Reports: no symptoms reported Male Genitalia: Reports: no symptoms reported Neurological: Reports: no symptoms reported Musculoskeletal: Reports: no symptoms reported Integumentary: Reports: no symptoms reported Hematologic/Lymphatic: Reports: no symptoms reported Endocrine: Reports: no symptoms reported Psychiatric: Reports: no symptoms reported Exam Vitals: Vital Signs Date Time Temp Pulse Resp B/P (MAP) Pulse Ox O2 Delivery O2 Flow Rate FiO2 03/24/25 18:31 59 14 146/72 (96) 98 03/24/25 18:12 0 03/24/25 17:44 98.1 General: General: Well alert, well oriented, not confused, not agitated, not in acute distress, well cooperated during the physical. HEENT: Conjunctive are pink, sclerae clear, no icterus, pupil is equal in both sides, reactive to light, no ear discharge, no pharyngeal erythema or an edema, mouth and lips are dry. Neck: Supple, no JVD, no lymphadenopathy and thyromegaly. Lungs:Equal air entry on both lungs, no additional sounds Heart: S1-S2 regular sinus rhythm and, regular rate, no gallops, no rubs, no murmurs Abdomen: Normal, no guarding no rigidity on deep palpation, no organomegaly No visible peristalsis. Normal bowel sounds Extremities: No obvious deformities, no pitting edema bilaterally, capillary refill intact, able to wiggle toes both sides, peripheral pulsations are intact on both sides SOD FARMER: No focal neurological deficits, no motor and sensory weakness in all 4 extremities, could move all 4 extremities Musculoskeletal: No joint swelling, deformities, inflammations, and no scoliosis and back tenderness Skin: No active skin lesions and rashes Diagnostic Data Last Recorded Lab Results: 03/24/25 18003/24/251803 Diagnostic Data: Laboratory Tests Test 03/24/25 18:04 Prothrombin Time 10.5 SECONDS (9.0-12.0) INR International Normalized Ratio 1.0 INR Activated Partial Thromboplast Time 24 SECONDS (22-32) APTT (Heparin Protocol) 24 SECONDS (45-60) L Coagulation Comments Counseling Services Smoking & Tobacco Cessation: N/A Advance Care Planning Advanced Care plannin - 30 Minutes (Full code) Additional Plan Assessment: This is a 64-year-old male with past medical history of aortic decision, Myocardial infarction who came to the ER in view of chest tightness since today morning. Plan: Chest pain most likely due to unstable angina Hypertension Heart score: 4, PIERCE:5 Status post 8 stenting and 2 CABG for aortic dissection and myocardial infarction Chest discomfort since today morning associated with shortness of breaths Vitals: Pulse rate in 60s. Systolic blood pressure in 150s to 160s EKG: no ST-elevation or ST-depression impression was a normal EKG. Troponin: 151, 2nd troponin 141: Pending, NT proBNP: 293 Chest x-ray: No acute cardiopulmonary disease. Ordered echo Plan: Aspirin 325 mg, 0.4 mg nitro patch, heparin drip started in the ER No beta-farhana due to low pulse rate Continue home medication aspirin 81 mg HS, atorvastatin 40 mg HS, lisinopril 10 mg HS from tomorrow since he has taken today's dose Can consider to start on nitro drip in view of ongoing chest discomfort and high blood pressure Cardiology to be consulted in the morning Hyperlipidemia Ordered lipid panel Continue home medication atorvastatin 40 mg HS Code status: Full code DVT prophylaxis: SCDs, heparin drip. Analgesia/sedation: Morphine/[place] as needed Lines/tubes: PIV GI prophylaxis: None Nutrition: Regular diet PT: Ordered Prognosis: Guarded Disposition: Admit to telemetry/PCU Miroslava Fraser MD Internal Medicine Resident I saw and discussed the pt with the resident team agree with assessment and plan [facility] Date of Service: Mar 24, 2025 Billing Provider: AILIN CONNELL MD, SHIVANI, RES Mar 24, 2025 20:09 AILIN CONNELL MD Mar 25, 2025 04:50
[2025-03-24] MEDS ORDERED: mag hydrox/Alum hydrox/simeth 30ml oral suspension PO PRN (20:40)
[2025-03-24] MEDS ORDERED: magnesium sulf-water 2g/50mL 50 ML IV PRN (20:40)
[2025-03-24] MEDS ORDERED: magnesium Cl slow-release 64mg tablet PO PRN (20:40)
[2025-03-24] MEDS ORDERED: magnesium sulf-water 4G/100mL 100 ML IV PRN (20:40)
[2025-03-24] MEDS ORDERED: potassium Cl 40MEQ/1/2NS 520ml 520 ML IV PRN (20:40)
[2025-03-24] MEDS ORDERED: ondansetron/PF 4mg/2ml inj IV PRN (20:40)
[2025-03-24] MEDS ORDERED: HYDROcodone/acetaminophen 10/325mg tab PO PRN (20:40)
[2025-03-24] MEDS ORDERED: HYDROcodone/acetaminophen 5mg/325mg tablet PO PRN (20:40)
[2025-03-24] MEDS ORDERED: magnesium hydroxide 30ml (MOM) UD suspension PO PRN (20:40)
[2025-03-24] MEDS ORDERED: potassium Cl 20 mEq SR tablet PO PRN (20:40)
[2025-03-24 21:29] LABS: CHOL/HDL RATIO 2.6 (0.00-4.99); LDL CHOLESTEROL 67 MG/DL (50-100)
[2025-03-24 22:00] VITALS: BP 114/69; PULSE 52; RESP 15; TEMP 96.9; O2SAT 96
[2025-03-24] MEDS ORDERED: ALFU10TA PO (22:36)
[2025-03-24 23:49] LABS: LEUKOCYTE ESTERASE ,URINE NEGATIVE (Neg); NITRITES, URINE NEGATIVE (Neg); OCCULT BLOOD,URINE NEGATIVE (Neg)
[2025-03-24 23:50] LABS: UA COLLECTION TYPE CLN CATCH MIDSTREAM
[2025-03-25] VITALS (8 sets, daily range): BP systolic 105–149; BP diastolic 57–74; PULSE 44–65; RESP 12–18; TEMP 97.1–98; O2SAT 94–98
[2025-03-25 02:08] LABS: CREATININE 0.54 MG/DL (0.60-1.10); TOTAL CARBON DIOXIDE 27.8 MMOL/L (24-32); eCRCL 143 ML/MIN; eGFR > 90 ML/MIN
[2025-03-25] MEDS: MESSAGE TO NURSING IV ONE ×3 (03:12→17:36)
[2025-03-25 06:08] LABS: MEAN PLATELET VOLUME 8.0 FL (7.4-10.4); RED CELL DISTRIBUTION WIDTH 14.9 % (11.5-14.5)
[2025-03-25] MEDS: K and/or MAG REPLACEMENT MC SCH (08:00)
[2025-03-25] MEDS: docusate sod 100mg capsule PO SCH (08:00)
[2025-03-25] MEDS: aspirin 81mg, enteric-coated 1 TAB TABLET.DR PO SCH (08:49)
[2025-03-25] MEDS: heparin 10,000 units/1 ML INJ IV PRN (09:49)
--- NOTE | 2025-03-25 12:01 | PROGRESS NOTE ---
Daily Progress Note Providers to CC ~ Antibiotic Timeout Antibiotic Ordered?: No Subjective No acute events overnight. Patient examined at bedside. No new complaints, not in acute distress. Patient currently denies chest pain, sob, palpitations, abdominal pain, n/v/d. Tele sinus gwen in 40s-50s. Labs unremarkable. Trop series downtrending from 151 to 122. TTE LVEF 60-65%, RVSP 45mmHg, significant valvular heart disease. 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 Mora Christine. Objective Vital Signs Date Time Temp Pulse Resp B/P (MAP) Pulse Ox O2 Delivery O2 Flow Rate FiO2 03/25/25 11:15 98.0 54 16 149/65 (93) 96 Room Air 03/24/25 18:12 0 Result Diagram: 03/25/25 0531 03/25/25 0140 Physical Exam General: Generalized weakness, A&Ox 3, NAD HEENT: Normocephalic, PERRLA Neck: Supple, trachea midline, no JVD Chest: Clear to auscultation bilaterally Cardiovascular: Bradycardic GI: Soft and nontender Extremities: No cyanosis/clubbing/or edema QA MANAGER: CN II-XII intact, no focal deficits Musculoskeletal: No paraspinal muscle tenderness, no muscle spasm Skin: Warm and intact Coagulation Studies Laboratory Tests Test 03/24/25 18:04 03/25/25 08:53 Prothrombin Time 10.5 SECONDS (9.0-12.0) INR International Normalized Ratio 1.0 INR Activated Partial Thromboplast Time 24 SECONDS (22-32) APTT (Heparin Protocol) 40 SECONDS (45-60) L Coagulation Comments Problem\Assessment\Plan This is a 64-year-old male with past medical history of aortic decision, Myocardial infarction who came to the ER in view of chest tightness since today morning. Assessment & Plan NSTEMI Hypertension Bradycardia HLD Hx ND and CABG Hx Aortic dissection Anemia, normocytic -HEART score 4, trop 151-141-122, CXR negative, pBNP 293, EKG sinus at 73, no ST depression/elevation -aspirin, nitroglycerin, statin, heparin drip -03/25: TTE LVEF 60-65%, RVSP 45mmHg, significant valvular heart disease, tele sinus gwen in 40s-50s, consulted his loader magazine grinder Dr. Mora Christine with recommendation for outpatient event monitoring Code status: Full code Date of Service: Mar 25, 2025 Billing Provider: GREG BERTRAND Common Visit Codes: [id number] INP/OBS CARE(HIGH) GREG BERTRAND Mar 25, 2025 12:01
--- NOTE | 2025-03-25 16:26 | CONSULTATION REPORT ---
History of Present Illness Providers to CC CC: EDDI CHRISTINE MD ~ Reason for Admit\Admit Dx: Cardiology consultation Refering MD: Hospitalist History of Present Illness Patient presented secondary to chest pain. Cardiology consultation was requested secondary to bradycardia. 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 In 2010 he underwent a CABG with SVG to OM and diagonal. He had a cardiac catheterization in 2020 that revealed patent grafts and LEE. There was no obstructive coronary artery disease. Patient has suffered from longstanding intermittent episodes of chest pain which has done pretty well since 2020. States that prior to arrival he developed substernal chest tightness that woke him up from sleep. He checked an Platiza watch her other heart monitor device and saw that when he was sleeping his heart rate shot up into the 180s. This pain has now resolved. He is currently on a heparin drip. No dizziness, lightheadedness or syncope. No shortness a breath. Has been walking regularly and doing well. Was asked, but otherwise denies review of systems. Allergies: Coded Allergies: Shellfish (Verified Allergy, Unknown, SWELLING, SOB, 03/24/25) adhesive tape (Verified Allergy, Unknown, 03/24/25) Home Medications Home Medications Active Reported Nitro-Dur Patch 0.2MG/HR* (Nitroglycerin) 0.2 Mg Patch 1 Patch TOP DAILY Nitrostat SL* (Nitroglycerin) 0.4 Mg Tablet 1 Tab SL Q5MIN PRN Lipitor* (Atorvastatin Calcium) 80 Mg Tablet 1 Tablet PO HS Lisinopril 20 Mg Tablet 1 Tab PO DAILY Aspirin EC (Aspirin) 81 Mg Tablet.dr 1 Tablet PO DAILY Past Medical History Medical History Comment Coronary artery disease as described above Hypertension Hyperlipidemia Past Surgical History Surgical History Comment CABG with LEE to LAD in 2006 followed by two-vessel CABG with OM and diagonal branches in 2010 Past Social History Social History Comment Occasional alcohol. Does not smoke currently. Does have a history of smoking. Physical Exam Last Vital Signs Recorded: RN Vital Signs have been reviewed: Yes, Temperature: 97.3, Source: Temporal, Heart Rate: 65, Respiratory Rate: 16, BP: 130/68, Pulse Oximetry: 98, Weight: 85.500 Physical Exam General: Awake, alert, oriented. No apparent distress Neck: Supple. Normal range of motion. No JVD Respiratory: Lungs are clear to auscultation bilaterally. No respiratory distress. Chest: Normal shape and size. No accessory muscle use. Cardiovascular: Regular rate and rhythm. S1-S2. No murmur, gallop, rub. Gastrointestinal: Abdomen is soft. Nontender to palpation. Bowel sounds present. Extremities: No lower extremity edema, cyanosis or clubbing. Neurologic: Alert and oriented x4. Nonfocal Psychiatric: Normal mood and affect. Skin: Normal color. Warm and dry. Review of Systems Constitutional: Reports: no symptoms reported Eyes: Reports: no symptoms reported ENT: Reports: no symptoms reported Respiratory: Reports: no symptoms reported Cardiovascular: Reports: chest pain; Denies: lightheadedness, syncope, edema, palpitations Gastrointestinal: Reports: no symptoms reported Genitourinary: Reports: no symptoms reported Neurological: Reports: no symptoms reported Musculoskeletal: Reports: no symptoms reported Hematologic/Lymphatic: Reports: no symptoms reported Endocrine: Reports: no symptoms reported Psychiatric: Reports: no symptoms reported Results EKG EKG Sinus rhythm rate of 73. No acute ST changes. Echocardiogram Echocardiogram Preliminary echocardiogram with preserved LVEF. Anteroseptal thinning. Diagram Lab Result Diagram: 03/25/25 0531 03/25/25 0140 Assessment/Plan Additional Plan Patient presented secondary to chest pain. The following is his problem list: Angina with minimally elevated troponins 151, 141, 122 No current chest pain or pressure Given his complaints of tachycardia at night possibly tachyarrhythmia related. --continue heparin drip for now --aspirin 81 mg daily --statin to keep LDL less than 55 --given bradycardia we will hold off on beta-farhana Sinus bradycardia Heart rate in the 50s to 60s during the day and down to the 40s at night. He reports possibly tachycardia at night at home Patient is asymptomatic --outpatient event monitor Hypertension --continue lisinopril Hyperlipidemia --continue atorvastatin Case reviewed with Dr. Mora Christine who is in agreement with this plan. Evaluate in the morning. We will likely go home with outpatient follow up. Supervising MD Supervising Physician: MICHELLE Beaver NP Mar 25, 2025 16:26
--- NOTE | 2025-03-25 18:24 | CARDIOLOGY REPORT ---
APPROVED REPORT EXAM: Comprehensive 2D, Doppler, and color-flow Echocardiogram. Patient Location: [facility]– [place] Heart Rate: 50's bpm Rhythm: SINUS BRADYCARDIA Indications CHEST PAIN AORTIC DISSECTION 2002 CABG x1 2006 CABG x1 2011 STENTS x8 MYOCARDIAL INFARCTION SHORTNESS OF BREATH HYPERTENSION Assistant Administrator: Brenna Christine MD Previous echo: 06-08-2021 [facility] EF 65%, trMR, trTR, LAE 2D Dimensions RVDd 3.7 cm IVSd 0.8 (0.7-1.1cm) LVDd 6.0 cm PWd 0.7 (0.7-1.1cm) IVSs 1.1 (0.8-1.2cm) LVDs 4.4 (2.5-4.0cm) PWs 1.1 (0.8-1.2cm) LVOT Diameter 2.02 (1.8-2.4cm) FS (%) 27.3 % SV 94.9 ml CO 4.8 L/min M-Mode Dimensions Left Atrium(MM) 4.63 (2.5-4.0cm) Aortic Root 2.51 (2.2-3.7cm) Aortic Cusp Exc 2.03 (1.5-2.0cm) MV EPSS 0.4 (<0.5cm) Aortic Valve AoV Peak Manuel. 198.2 cm/s AoV VTI 40.8 cm AO Peak GR. 15.7 mmHg AO Mean GR. 7 mmHg LVOT VTI 29.80 cm LVOT Peak Manuel. 140.0 cm/s DAY(VTI)/BSA 2.34 cm2/m2 DAY (VTI) 2.34 cm2 Mitral Valve MV E Velocity 78.0 cm/s MV Peak Gr. 3 mmHg MV DECEL TIME 228 ms MV A Velocity 72.5 cm/s MV PHT 72 ms E/A Ratio 1.1 MVA (PHT) 3.06 cm2 MV VMax88.5 cm/s TDI Lateral E' P. V8.03 cm/s E/Lateral E' 9.7 Tricuspid Valve TR P. Velocity 297 cm/s RAP ESTIMATE 10 mmHg TR Peak Gr. 35 mmHg RVSP 45 mmHg Pulmonary Vein S1 Velocity 70.4 cm/s D2 Velocity 54.6 cm/s PVa Awfmkpbb05.1 cm/s PVa [id number] msec LEFT VENTRICLE Increased LV size and wall thickness. Anterior septal thinning, cannot R/o sm VSD (see loop 25) Overa ll systolic function is normal. LVEF is 60-65%. RIGHT VENTRICLE RV is mildly dialted in size with normal function. Elevated right heart pressures with an RVSP of 45 mmHg. ATRIA Left atrium is mildly dilated. AORTIC VALVE Trileaflet AV appears mildly sclerotic and calcified without stenosis. No insufficiency. MITRAL VALVE Mild MV annular calcification without stenosis. Trace regurgitation. TRICUSPID VALVE TV appears structurally normal with trace regurgitation. PULMONIC VALVE Normal PV without stenosis, physiologic insufficiency. GREAT VESSELS The aortic root is normal in size. PERICARDIUM Normal pericardium. No effusion. Other Information Study Quality: Adequate Conclusion Increased LV size and wall thickness. Anterior septal thinning, cannot R/o sm VSD (see loop 25) Overa ll systolic function is normal. LVEF is 60-65%. RV is mildly dialted in size with normal function. Elevated right heart pressures with an RVSP of 45 mmHg. Left atrium is mildly dilated. Trileaflet AV appears mildly sclerotic and calcified without stenosis. No insufficiency. Mild MV annular calcification without stenosis. Trace regurgitation. TV appears structurally normal with trace regurgitation. Normal pericardium. No effusion.
[2025-03-26 02:00] VITALS: BP 143/71; PULSE 57; RESP 20; TEMP 98; O2SAT 95
[2025-03-26 04:23] LABS: MEAN PLATELET VOLUME 7.8 FL (7.4-10.4); RED CELL DISTRIBUTION WIDTH 14.7 % (11.5-14.5)
[2025-03-26 04:41] LABS: CREATININE 0.67 MG/DL (0.60-1.10); TOTAL CARBON DIOXIDE 29.8 MMOL/L (24-32); eCRCL 115 ML/MIN; eGFR > 90 ML/MIN
[2025-03-26] MEDS: MESSAGE TO NURSING IV ONE (04:50)
[2025-03-26 06:00] VITALS: BP 149/76; PULSE 49; RESP 9; TEMP 98; O2SAT 98
[2025-03-26] MEDS: pantoprazole 40mg Tablet.DR PO SCH (07:30)
[2025-03-26] MEDS: potassium Cl 20 mEq SR tablet PO PRN (07:43)
[2025-03-26 07:44] VITALS: BP_SYST 149; PULSE 49
[2025-03-26 08:00] VITALS: RESP 12; O2SAT 96
--- NOTE | 2025-03-26 09:48 | PROGRESS NOTE ---
Progress Note Cardiology Providers to CC ~ Subjective Subjective Patient was up and walking around. He denies chest pain or pressure. Did have an episode last night that felt like his normal wave of chest pain that went away instantaneously without intervention. No significant Jaskaran arrhythmias on telemetry. No dizziness, lightheadedness or syncope. Objective Result Diagram: 03/26/2540903/26/25409 Objective General: Awake, alert, oriented. No apparent distress Respiratory: Lungs are clear to auscultation bilaterally. No respiratory distress. Chest: Normal shape and size. No accessory muscle use. Cardiovascular: Regular rate and rhythm. S1-S2. No murmur, gallop, rub. Extremities: No lower extremity edema, cyanosis or clubbing. Neurologic: Alert and oriented x4. Nonfocal Psychiatric: Normal mood and affect. Skin: Normal color. Warm and dry. Coagulation Studies Laboratory Tests Test 03/24/25 18:04 03/26/25 04:10 Prothrombin Time 10.5 SECONDS (9.0-12.0) INR International Normalized Ratio 1.0 INR Activated Partial Thromboplast Time 24 SECONDS (22-32) APTT (Heparin Protocol) 54 SECONDS (45-60) Coagulation Comments Problem\Assessment\Plan Additional Plan Patient presented secondary to chest pain. The following is his problem list: Angina with minimally elevated troponins 151, 141, 122 No current chest pain or pressure Given his complaints of tachycardia at night possibly tachyarrhythmia related. --continue heparin drip for now --aspirin 81 mg daily --statin to keep LDL less than 55 --given bradycardia we will hold off on beta-farhana Sinus bradycardia Heart rate in the 50s to 60s during the day and down to the 40s at night. He reports possibly tachycardia at night at home Patient is asymptomatic --outpatient event monitor Hypertension --continue lisinopril Hyperlipidemia --continue atorvastatin Hypokalemia -potassium is 3.4 --replacement per protocol Case reviewed with Dr. Mora Christine who is in agreement with this plan. We will follow up as an outpatient. Supervising Physician: MICHELLE Beaver NP Mar 26, 2025 09:48
[2025-03-26] MEDS ORDERED: LISI5TAB22 PO (10:59)
[2025-03-26] MEDS ORDERED: ALFU10TA PO (11:00)
--- NOTE | 2025-03-26 15:38 | DISCHARGE SUMMARY ---
Discharge Summary Providers to CC ~ Discharge Summary Admission Diagnosis: NSTEMI Hospital Course DATE OF ADMISSION: March 24, 2025 DATE OF DISCHARGE: March 26, 2025 CBC testing done on March 26, 2025 WBC 6.5 hemoglobin 12.4 hematocrit 37.2 platelet count 311. Serum chemistry done on March 26, 2025 sodium 141 potassium 3.4 creatinine 0.67 GFR 90 hemoglobin A1c 5.5. Mildly elevated troponin 151, 141 and 122. Normal lipid levels ECHO- ConclusionIncreased LV size and wall thickness. Anterior septal thinning, cannot R/o sm VSD (see loop 25) Overall systolic function is normal. LVEF is 60- 65%. RV is mildly dialted in size with normal function. Elevated right heart pressures with an RVSP of 45 mmHg. Left atrium is mildly dilated. Trileaflet AV appears mildly sclerotic and calcified without stenosis. No insufficiency. Mild MV annular calcification without stenosis. Trace regurgitation. TV appears structurally normal with trace regurgitation. Normal pericardium. No effusion. CHEST,SINGLE VIEW-IMPRESSION: No acute cardiopulmonary disease. Discharge Diagnosis\\Comment: Angina with minimally elevated troponin, sinus bradycardia, hypertension, hyperlipidemia, hypokalemia, Hx [place] and CABG , Hx Aortic dissection Anemia, normocytic , possible BPH Operations\\Procedures: None Consultants: Dr. Mora Torres Complications: None Condition on DC: Stable New Medications: Alfuzosin HCl (Uroxatral) 10 Mg Tab.sr.24h 1 TAB PO DAILY for 30 Days, #30 TAB 0 Refills Lisinopril (Lisinopril) 5 Mg Tablet 1 TAB PO DAILY for 30 Days, #30 TAB 0 Refills Continued Medications: Aspirin (Aspirin EC) 81 Mg Tablet.dr 1 TABLET PO DAILY, TABLET Atorvastatin Calcium* (Lipitor*) 80 Mg Tablet 1 TABLET PO HS, TABLET Nitroglycerin SL* (Nitrostat SL*) 0.4 Mg Tablet 1 TAB SL Q5MIN PRN for Chest pain Q5min PRNx3-call MD, #25 TAB Discontinued Medications: Lisinopril (Lisinopril) 20 Mg Tablet 1 TAB PO DAILY, TAB Nitroglycerin Patch 0.2MG/HR* (Nitro-Dur Patch 0.2MG/HR*) 0.2 Mg Patch 1 PATCH TOP DAILY Discharge Summary: As per admitting provider's history and physical note" This is a 64-year-old male with past medical history of aortic dissection, Myocardial infarction, hypertension, hyperlipidemia who came to the ER in view of chest tightness since today morning. He explained that he woke up from sleep and noticed chest tightness associated with some shortness of breath. Chest tightness was 5/10, intermittent, with each episode lasting a few hours, nonradiating. Not associated with diaphoresis, cough, expectoration, palpitation, dizziness, nausea, leg swelling. He put on a nitro patch which did not relieve was chest pain, which prompted him to come to the ER. Currently rates the pain as 2/10. He has had similar episodes in the past, but those episodes were relieved with nitro patch. He can walk 2-2.5 miles without stopping to catch his breath. He is Dr. Torres's patient. His last angiogram four years ago was normal.In 2002 when he tried to left a heavy steel plate which weighed over a 1000 pound, he had aortic dissection for which he underwent 8 stenting. He has had on and off chest discomfort ever since associated vasospasm. He underwent 2 CABG surgeries one in 2006 and the other in 2010." During hospitalization patient was treated for NSTEMI/ angina with minimally elevated troponins Hypertension Bradycardia HLD Hx [place] and CABG Hx Aortic dissection Anemia, normocytic Cardiology consultation done by Dr. Evelio Torres and we followed the recommendation. Patient's clinical condition was stable throughout the hospi talization. Patient is feeling better he has been afebrile and getting discharged home in stable condition. Patient is seen and examined on the day of discharge. All labs, diagnostic workup and discharge plan discussed with patient and family members in detail before her discharge. All questions and queries answered to the best of my professional medical knowledge. I heard siddharth adams's concerns and address appropriately. Discharge instructions provided to the patient. Please follow-up with Dr Mora torres , PCP in 1-2 weeks for hospital discharge visit. Adjustment of blood pressure medication done during hospital stay. Maintain blood pressure and heart rate log book for 2-3 weeks and follow- up with the primary care physician/ work station support specialist for hypertension. Please read the side effects of your medications. activity as tolerated General-patient not in any acute distress, alert awake oriented, age- appropriate, looks comfortable HEENT-atraumatic normocephalic, neck supple without elevated JVD, no thyromegaly or carotid bruit. No lymphadenopathy bilaterally. Eyes-no icterus or pallor seen in eyes Chest-clear to auscultation bilaterally, breathing nonlabored no tachypnea, no wheezing, no crepitation, no crackles. Heart-S1-S2 normal, regular heart rate no murmur Abdomen bowel sounds positive on auscultation, soft nondistended nontender no guarding, no rigidity Skin no active skin rash/signs of chronic hyperpigmentation present over lower extremity Neurology-grossly intact, nonfocal alert awake oriented Extremity- no pedal edema able to move all 4 extremities, ambulates Psychiatry - patient is not confused or agitated cooperated during physical examination *Problems/Diagnosis: (1) NSTEMI (non-ST elevated myocardial infarction) Status: Acute Total Time Spent on D/C: > 30 Minutes Date of Service: Mar 26, 2025 Billing Provider: KACIE CHAUDHARI MD Common Visit Codes: 84018-TQA/OBS DISCH DAY >30min KACIE CHAUDHARI MD Mar 26, 2025 15:31
== END 2025-03-26 11:35 | disposition home or self-care (01) | DRG 282 ==
LOC: ER 17:41 → ED HOLD 19:28 → EDBEDREQ 21:00 → PCU 3S 21:01
PROVIDERS: ADMIT Internal Medicine; ATTEND Nurse Practitioner Family
DX: I21.4 Non-ST elevation (NSTEMI) myocardial infarction (principal); I10 Essential (primary) hypertension; E78.5 Hyperlipidemia, unspecified; N40.0 Benign prostatic hyperplasia without lower urinary tract symptoms; E87.6 Hypokalemia; I25.119 Atherosclerotic heart disease of native coronary artery with unspecified angina pectoris; D64.9 Anemia, unspecified; Z91.013 Allergy to seafood; Z91.09 Other allergy status, other than to drugs and biological substances; Z79.82 Long term (current) use of aspirin; Z79.899 Other long term (current) drug therapy; Z95.1 Presence of aortocoronary bypass graft; Z87.891 Personal history of nicotine dependence
CPT/HCPCS: 36415; 71045; 80048; 80053; 80061; 81003; 83036; 83735; 83880; 84484; 85025; 85610; 85730; 87081; 93005; 93306; 96365; 96375; 99285; G0378; J1644

== ENCOUNTER 2025-04-14 12:26 | Emergency (ER) | payer MEDICARE, OTHER ==
[~2025-04-14] VITALS: Ht 177.8 cm; Wt 84.1 kg
[~2025-04-14 12:26] MED LIST changes: +ALFU10TA PO; -LISI20TA28 PO; +LISI5TAB22 PO; -NITR1PAT63 TOP
[2025-04-14 13:01] VITALS: BP 137/84; PULSE 58; O2SAT 100
--- NOTE | 2025-04-14 13:13 | ELECTROCARDIOGRAPH REPORT ---
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
--- NOTE | 2025-04-14 13:23 | Physician Documentation ---
History of Present Illness ~ Chief Complaint: Shortness of Breath Stated Complaint: CHEST PAIN Time Seen by MD: 13:22 Primary Medical Doctor: Hospitalist HPI 64-year-old male presenting with shortness of breath/chest tightness He tells me that he has a long history of heart related issues including an aortic dissection and vasospasms. He was admitted to the hospital for similar symptoms a couple of weeks ago and had reassuring heart testing. He tells me that last night and then again today he had an episode of chest tightness. He states that feels like his chest is tight and he can not take a deep breath, also feels kind of like pressure. He tried taking an albuterol inhaler but it did not help. He tried taking nitroglycerin but it initially did not help. He then put on a nitro patch and his symptoms eventually resolved. Currently he is asymptomatic. No fevers, congestion, cough, or infectious symptoms. No leg pain or swelling. No abdominal symptoms. 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 Medication Reconciliation Allergies: Coded Allergies: Shellfish (Verified Allergy, Unknown, SWELLING, SOB, 03/24/25) adhesive tape (Verified Allergy, Unknown, 03/24/25) Scheduled Alfuzosin HCl (Uroxatral), 1 TAB PO DAILY Aspirin (Aspirin EC), 1 TABLET PO DAILY, (Reported) Atorvastatin Calcium* (Lipitor*), 1 TABLET PO HS, (Reported) Lisinopril (Lisinopril), 1 TAB PO DAILY Scheduled PRN Nitroglycerin SL* (Nitrostat SL*), 1 TAB SL Q5MIN PRN for Chest pain Q5min PRNx3-call MD, (Reported) Past Medical History Past Medical History: Angina, Coronary Artery Disease, Hypertension Past Surgical History: angioplasty, coronary bypass surgery, other Alcohol Use: Rarely Drug Use: none Lives with: Spouse Lives In: Home Occupation: disabled Review of Systems Constitutional: Denies: fever Respiratory: Reports: shortness of breath Cardiovascular: Reports: chest pain Physical Exam Vital Signs: Temperature: 98.0, Heart Rate: 58, Respiratory Rate: 18, BP: 137/84, Pulse Oximetry: 100, Weight: 84.100 Oxygen Flow Rate: 0 Physical Exam General: This is a pleasant and overall well-appearing middle-aged man, at bedside HEENT: Atraumatic, oropharynx is moist Heart: Regular rate and rhythm, no loud murmur. normal-appearing peripheral p erfusion including normal right radial pulse. Well-healed central chest scar. Lungs: Clear breath sounds bilateral, no wheezing, normal work of breathing, normal oxygen saturation on room air Extremities: Warm and well-perfused, no edema, no posterior calf tenderness Neuro: Alert and oriented Psychiatric: Calm and cooperative with exam Progress Results/Orders Results/Orders Completed Orders - ECHO NATHAN MD Electrocardiogram (04/14/25 13:11) Hs Troponin I W Calculations (04/14/25 13:46) Cbc/Diff (04/14/25 13:46) CMP (04/14/25 13:46) Vital Signs 04/14/25 04/14/25 04/14/25 12:46 13:01 14:08 Temp 98.0 Pulse 59 58 Resp 16 18 18 B/P (MAP) 146/80 137/84 (101) Pulse Ox 100 100 O2 Flow Rate 0 Laboratory Tests Test 04/14/25 12:35 White Blood Count 6.2 Red Blood Count 4.63 L Hemoglobin 13.4 L Hematocrit 41.6 L Mean Corpuscular Volume 89.7 Mean Corpuscular Hemoglobin 28.9 Mean Corpuscular Hemoglobin Concent 32.2 L Red Cell Distribution Width 14.9 H Platelet Count 397 Mean Platelet Volume 8.0 Neutrophils (%) (Auto) 67.2 Lymphocytes (%) (Auto) 24.0 Monocytes (%) (Auto) 7.1 Eosinophils (%) (Auto) 1.0 Basophils (%) (Auto) 0.7 Neutrophils # (Auto) 4.2 Lymphocytes # (Auto) 1.5 Monocytes # (Auto) 0.4 Eosinophils # (Auto) 0.1 Basophils # (Auto) 0.0 CBC Comment Sodium Level 142 Potassium Level 4.4 Chloride Level 108 H Carbon Dioxide Level 29.4 Anion Gap 5 L Blood Urea Nitrogen 16 Creatinine 0.82 Estimated GFR/1.73 m2 > 90 BUN/Creatinine Ratio 19.5 Glucose Level 101 Calcium Level 8.7 Total Bilirubin 0.7 Aspartate Amino Transf (AST/SGOT) 27 Alanine Aminotransferase (ALT/SGPT) 40 Alkaline Phosphatase 96 Troponin I High Sensitivity 117 *H Total Protein 6.8 Albumin 3.8 Globulin 3.0 Albumin/Globulin Ratio 1.3 Chemistry Comments EKG/XRAY/CT/US/VASC/MRI EKG : Additional Comment I personally interpreted the EKG and this shows: Sinus rhythm, rate 65, QTC 419, no STEMI or acute ischemic changes Medical Decision Making Additional info obtained from: old records Findings Per chart review, the patient has recently admitted here to the hospital. He has a chronically elevated troponin. He had a recent cardiac echo. Differential Dx:Considerations: Include: anxiety, asthma, bronchitis, cardiogenic shock, dysrhythmia, myocardial infarction, panic attack, upper resp. infection Additional Infomation The patient presents with episodic chest pressure. He has a history of vasospasm as well as past aortic dissection. Currently he is completely asymptomatic. His EKG is reassuring and without ischemic changes. His troponin is slightly elevated, however it is similar to previous values over the past 4 years. Further he just was admitted to the hospital and had heart testing including reassuring cardiac echo. He remained asymptomatic while here in the emergency department. Overall this appears most consistent with chronic vasospasm. I did offer to perform a repeat troponin further testing, but he declined. 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 If he does develop any worsening symptoms he will return here to the emergency department. Departure Time of Disposition: 14:42 Disposition: 01 HOME / SELF CARE / HOMELESS Impression: Primary Impression: Chest tightness Additional Impression: Elevated troponin Condition: Stable Discharge Instructions: Troponin Test Referrals: NO PRIMARY CARE PROVIDER (PCP) Education Educated: Patient, Family Educated regarding: diagnosis, need for follow up Signature Scribe Signature: yanni Attestation: ECHO Myers MD Apr 14, 2025 13:23
[2025-04-14 14:08] VITALS: RESP 18
[2025-04-14 14:10] LABS: MEAN PLATELET VOLUME 8.0 FL (7.4-10.4); RED CELL DISTRIBUTION WIDTH 14.9 % (11.5-14.5)
[2025-04-14 14:14] LABS: CREATININE 0.82 MG/DL (0.60-1.10); TOTAL CARBON DIOXIDE 29.4 MMOL/L (24-32); eCRCL 94 ML/MIN; eGFR > 90 ML/MIN
[2025-04-14 14:49] VITALS: TEMP 98
== END 2025-04-14 14:54 | disposition home or self-care (01) ==
LOC: ER 12:26
DX: R07.89 Other chest pain (principal); R79.89 Other specified abnormal findings of blood chemistry; R06.02 Shortness of breath; I10 Essential (primary) hypertension; I25.10 Atherosclerotic heart disease of native coronary artery without angina pectoris; Z88.8 Allergy status to other drugs, medicaments and biological substances; Z91.013 Allergy to seafood; Z95.1 Presence of aortocoronary bypass graft; Z79.82 Long term (current) use of aspirin
CPT/HCPCS: 36415; 80053; 84484; 85025; 93005; 99284